=== PATIENT | female | born 1960 | race Caucasian/White ===

== ENCOUNTER → 2020-01-20 | Outpatient (CLI) | payer OTHER ==
--- NOTE | 2020-01-20 12:43 | REP ---
Bilateral lower extremity duplex arterial ultrasound: History: Peripheral vascular disease. Sonographic findings: Ankle brachial indices are normal measured at 1.03 on the right and 1.06 on the left. A 20 mmHg blood pressure difference is noted in the arms, right higher than left. Mild to moderate plaquing is observed bilaterally and diffusely. Triphasic and biphasic waveforms are noted in the lower extremity arteries bilaterally. No high-grade lower extremity stenosis is seen. Right lower extremity arterial Doppler velocity chart: CF A PSV 170 cm/S Profunda 166 Proximal SFA 134 Mid SFA 150 Distal SFA 124 Popliteal 60/80 Proximal AT A 59 Tibioperoneal trunk 67 Proximal WORM RAISER 74 Distal WORM RAISER 86 Distal AT A 45 Dorsalis pedis artery 40 Left lower extremity arterial Doppler velocity chart: CF A PSV 159 cm/S Profunda 95 Proximal SFA 117 Mid SFA 143 Distal SFA 88 Popliteal 81/59 Proximal AT A 59 Tibioperoneal trunk 60 Proximal WORM RAISER 74 Distal WORM RAISER 83 Distal AT A 47 DPA 43 Electronically Signed by Robert Palma MD 01/20/2020 12:34 P
== END ==
LOC: M RAD 10:51
PROVIDERS: ATTEND Internal Medicine
DX: I73.9 Peripheral vascular disease, unspecified (principal)

== ENCOUNTER → 2020-03-30 | Outpatient (CLI) | payer OTHER ==
[~2020-03-30] MED LIST: ASPI81TA26 PO; ATOR80TA59 PO; B-12100T2 PO; FOLI1TAB11 PO; OXYC1TAB23 PO
--- NOTE | 2020-03-30 14:20 | REP ---
REASON FOR EXAM: History of comminuted proximal humeral fracture. There are no prior imaging studies of the right shoulder of any type. There is a comminuted partially impacted proximal humeral fracture which includes the anatomical neck as well as the more distal portion of the imaged proximal humeral diaphysis. There is also an element of impaction. The glenohumeral relationship is maintained. The acromioclavicular joint is maintained. There are no additional fractures. The imaged lung wynn show irregular pleural thickening in the right lung apical region. IMPRESSION: 1. Proximal humeral fracture as described above. 2. Suspect findings involving the right lung apex. Contrast enhanced CT examination of chest is recommended. Electronically Signed by Jose Luis Gabriel DO 03/30/2020 04:12 P
== END ==
LOC: M RAD 12:44
PROVIDERS: ATTEND Orthopaedic Surgery Sports Medicine
DX: S42.251A Displaced fracture of greater tuberosity of right humerus, initial encounter for closed fracture (principal); X58.XXXA Exposure to other specified factors, initial encounter; Y92.9 Unspecified place or not applicable

== ENCOUNTER → 2020-04-03 | Outpatient (CLI) | payer OTHER | LOC: M LABSMTC 14:10 | PROVIDERS: ATTEND Orthopaedic Surgery Sports Medicine | DX: Z03.818 Encounter for observation for suspected exposure to other biological agents ruled out (principal); Z11.59 Encounter for screening for other viral diseases ==

== ENCOUNTER → 2020-04-03 | Outpatient (CLI) | payer OTHER ==
[2020-04-03 14:46] LABS: HEMATOCRIT 33.2 % (36.0-47.0); HEMOGLOBIN 11.1 g/dl (12.0-15.5); MEAN CORPUSCULAR HEMOGLOBIN 32.1 pg (27.0-33.0); MEAN CORPUSCULAR HGB CONC 33.4 g/dl (32.0-36.5); PLATELET COUNT, AUTOMATED 295 10^3/uL (150-450); RED BLOOD COUNT 3.46 10^6/uL (4.00-5.40); WHITE BLOOD COUNT 9.2 10^3/uL (4.0-10.0)
[2020-04-03 14:56] LABS: INR 0.97; PROTHROMBIN TIME 12.6 SECONDS (11.8-14.0)
[2020-04-03 14:57] LABS: PARTIAL THROMBOPLASTIN TIME 29.3 SECONDS (25.0-38.4)
== END ==
LOC: M LAB 13:41
PROVIDERS: ATTEND Orthopaedic Surgery Sports Medicine
DX: Z01.818 Encounter for other preprocedural examination (principal); S42.209A Unspecified fracture of upper end of unspecified humerus, initial encounter for closed fracture; X58.XXXA Exposure to other specified factors, initial encounter; Y92.9 Unspecified place or not applicable

== ENCOUNTER 2020-04-06 10:28 | Day surgery (SDC) | payer OTHER ==
[~2020-04-06] VITALS: Ht 162.6 cm; Wt 63.7 kg
[~2020-04-06 10:28] MED LIST changes: -ASPI81TA26 PO; -ATOR80TA59 PO; -B-12100T2 PO; -FOLI1TAB11 PO; -OXYC1TAB23 PO; +ceFAZolin SOD 2 GM in IV 1 EA IV ONE
[2020-04-06] MEDS ORDERED: ROPIvacaine 0.5% 30ML INJECTION (J2795 PER 1MG) ONE (10:29)
[2020-04-06] MEDS ORDERED: EPINEPHrine INJ 1 MG/ML 1ML AMP ONE (10:29)
[2020-04-06] MEDS ORDERED: LIDOCAINE 1% MDV 20ML VIAL ONE (10:29)
[2020-04-06] MEDS ORDERED: dexameTHASONE 10MG/1ML VIAL PRES.FREE (J1100 PER 1MG) ONE (10:29)
[2020-04-06] MEDS ORDERED: ASPI81TA26 PO (10:45)
[2020-04-06] MEDS ORDERED: OXYC1TAB23 PO (10:45)
[2020-04-06] MEDS ORDERED: FOLI1TAB11 PO (10:45)
[2020-04-06] MEDS ORDERED: B-12100T2 PO (10:45)
[2020-04-06] MEDS ORDERED: ATOR80TA59 PO (10:45)
[2020-04-06] MEDS ORDERED: fentaNYL 100 MCG/2 ML INJECTION (J3010) As Ordered ONE ×2 (11:25→13:23)
[2020-04-06] MEDS ORDERED: MIDAZOLAM INJ 2MG/2ML VIAL (J2250 PER 1MG) As Ordered ONE ×2 (11:25→13:23)
[2020-04-06 11:26] LABS: HEMATOCRIT 35.8 % (36.0-47.0); HEMOGLOBIN 11.4 g/dl (12.0-15.5); MEAN CORPUSCULAR HGB CONC 31.8 g/dl (32.0-36.5); MEAN CORPUSCULAR VOLUME 97.3 fl (80.0-96.0); PLATELET COUNT, AUTOMATED 364 10^3/uL (150-450); RED BLOOD COUNT 3.68 10^6/uL (4.00-5.40); WHITE BLOOD COUNT 8.2 10^3/uL (4.0-10.0)
[2020-04-06] MEDS ORDERED: ONDANSETRON 4MG/2ML VIAL As Ordered ONE (11:27)
[2020-04-06] MEDS ORDERED: dexameTHASONE 4 MG/ML 1ML VIAL (J1100 PER 1MG) As Ordered ONE (11:27)
[2020-04-06] MEDS ORDERED: propofoL 200 MG/20 ML VIAL As Ordered ONE (11:27)
[2020-04-06] MEDS ORDERED: ROCURONIUM BROMIDE 50 MG/5 ML VIAL As Ordered ONE (11:27)
[2020-04-06] MEDS ORDERED: LIDOCAINE 2% 100MG/5ML SDV (FOR ANES.) As Ordered ONE (11:27)
[2020-04-06 11:36] LABS: INR 0.99; PROTHROMBIN TIME 12.8 SECONDS (11.8-14.0)
[2020-04-06 11:37] LABS: PARTIAL THROMBOPLASTIN TIME 30.9 SECONDS (25.0-38.4)
[2020-04-06 12:13] LABS: ERYTHROCYTE SEDIMENTATION RATE 63 mm/hr (0-30)
[2020-04-06] MEDS ORDERED: fentaNYL 100 MCG/2 ML INJECTION (J3010) IV ONE (14:00)
[2020-04-06] MEDS ORDERED: MIDAZOLAM INJ 2MG/2ML VIAL (J2250 PER 1MG) IV ONE (14:00)
[2020-04-06] MEDS ORDERED: TRANEXAMIC ACID 100 MG/ML 10ML VIAL As Ordered ONE ×2 (14:07→14:57)
[2020-04-06] MEDS ORDERED: SUGAMMADEX SODIUM 500 MG/5 ML VIAL (BRIDION) As Ordered ONE (14:27)
[2020-04-06] MEDS ORDERED: PHENYLEPHRINE 10MG/ML 1ML VIAL (J2370 PER 1) As Ordered ONE ×2 (14:33→17:48)
[2020-04-06] MEDS ORDERED: PHENYLephrine 500MCG 5ML (100MCG/ML) SYRINGE As Ordered ONE ×2 (14:39→16:37)
[2020-04-06] MEDS ORDERED: ACETAMINOPHEN 1000MG 100ML IV BTL (OFIRMEV) (J0131 PER 10MG) As Ordered ONE (14:40)
[2020-04-06] MEDS ORDERED: DESFLURANE 240 ML INHALANT As Ordered ONE (17:37)
[2020-04-06] MEDS ORDERED: BUPIVACAINE LIPOSOME/PF 1.3% 20ML VIAL (13.3MG/ML)(EXPAREL)(C9290 PER1MG) As Ordered ONE (17:58)
[2020-04-06] MEDS ORDERED: MORPHINE 2 MG/ML 1ML VIAL (J2270) IV PRN (18:45)
[2020-04-06] MEDS ORDERED: ACETAMINOPHEN TAB 650MG DOSE (2X325MG) PO PRN (18:45)
[2020-04-06] MEDS ORDERED: PERCOCET 5MG/325MG TAB PO PRN (18:45)
[2020-04-06] MEDS ORDERED: ONDANSETRON 4MG/2ML VIAL IV PRN ×2 (18:45)
[2020-04-06] MEDS ORDERED: oxyCODONE 5MG TAB PO PRN (18:45)
[2020-04-06] MEDS ORDERED: LR 1,000 ML IV SCH ×2 (18:45)
[2020-04-06] MEDS ORDERED: fentaNYL 100 MCG/2 ML INJECTION (J3010) IV PRN (18:45)
[2020-04-06 19:45] VITALS: BP 125/64
--- NOTE | 2020-04-06 20:42 | RO ---
DATE OF PROCEDURE: 04/06/2020 PREOPERATIVE DIAGNOSIS: Right proximal humerus fracture. POSTOPERATIVE DIAGNOSIS: Right proximal humerus fracture. PLANNED PROCEDURE: Right proximal humerus open reduction internal fixation (ORIF), possible fibular strut grafting. PROCEDURE PERFORMED: Right proximal humerus open reduction internal fixation, biceps tenodesis, fibular strut grafting, and DBX allograft. OPERATIVE PREAMBLE: This 60-year-old female sustained a proximal humerus fracture. This appeared nearly 100% displaced. There is severe comminution of the medial calcar segment. Given these factors, as well as her age and previous functional status, we talked about the pros and the cons, the risks and benefits of going ahead with surgical management. I reiterated the risks in preoperative holding, marked the right upper extremity and proceeded to surgery. DESCRIPTION OF PROCEDURE: Patient was brought to the operating theater. She was placed supine on the operating room table. Bed was turned 180 degrees so that the patient's head was in the foot end of the table. All bony prominences were padded. Sequential compression devices (SCDs) were used. Jane Hugger was employed. Head was appropriately padded. Two grams of IV Ancef was administered. General anesthesia was induced. The patient also received a preoperative block prior to the surgery. Limb was prepped and draped in the usual sterile fashion. Limb was free draped. Over 3 minutes prep solution drying time was employed. The patient was sat up at approximately a 30-degree angle. Intraoperative fluoroscopy was brought in parallel to the bed at the head end. Radiolucent arm board was used. Preoperative time-out was performed confirming the site, the patient and the surgery. I began by making a standard deltopectoral incision and approached the shoulder. I carried dissection down through skin and subcutaneous tissue. My incision was just lateral to the coracoid. I developed the interval at the cephalic vein. This was retracted and protected laterally. I then identified the conjoined tendon. I incised on the lateral side of that. I used the Bailey shoulder retractor. The fracture did appear to be lower than the subscapularis tendon at the medial calcar segment. There was severe comminution in that area. Multiple fragments. One fragment had to be removed; it was completely devitalized. I placed multiple pins in the humeral head to try to get this out of varus and achieve a proper neck shaft angle. The biceps was stuck in the fracture site. As such, I followed this up through the rotator interval and performed a biceps tenotomy proximally and tenodesis distally in the groove. I then fashioned a fibular strut graft to fit into the intramedullary canal and then proximally into the humeral head and medial calcar segment. Unfortunately, there was a small break in sterile technique. At this point, the sagittal saw used to cut the fibula penetrated the towel going on to the [place] stand. As such, we followed standard protocol, discarding all contaminated instruments, changed my gloves, and I soaked the fibula strut graft in Betadine for 3 minutes with a bulb syringe, thorough lavage and irrigation. I then proceed with the case. I placed the [employer]ynthes precontoured locking plate on the anterolateral aspect of the humerus. I inserted one fully-threaded cortical 3.5 mm locking screw. Unfortunately, the plate slightly lost reduction at this point, and the screws appeared to be aiming too far posteriorly, so the plate was repositioned more on the lateral cortex of the proximal humerus. This appeared much better in terms of proper plate position. I ensured the plate was not impinging proximally by direct visualization using a small K-wire through the locking part of the guide proximally as well as intraoperative fluoroscopy. Once I was satisfied with plate position, I passed a number of 1.2 mm K-wires into the proximal head segment. I then used cortical screws in the distal two holes to achieve plate fixation down to bone. I used a cortical screw in the oblong hole for the medial calcar segment through the fibular strut graft and into the inferomedial aspect of the head and neck region. I then inserted all the fully-threaded cortical locking screws proximally using a 2.8 mm drill. I checked the screw length on both the AP and lateral radiographs to ensure that they were just short of subchondral bone. The medial calcar segment had two areas of comminution. I used these to achieve proper length. However, I left the soft tissues in place as to not devitalize these fragments. Final radiographs were taken. These were saved on PACS system. Thorough irrigation was performed of the wounds. Rotator cuff at both subscapularis as well as supraspinatus appeared intact throughout the case. Subcutaneous tissues were closed with interrupted #2-0 Vicryl and the skin with running #3-0 Monocryl. 10 mL of saline was then drawn up with the Exparel solution, making 20 mL of solution. This was instilled in and around the incision sites. Skin was cleaned with a wet and dry dressing followed by application of Steri-Strips, Adaptic, 4 x 8 gauze, ABD dressing and cloth tape. The patient's upper extremity was placed into a sling. The patient was woken up from general anesthetic, transferred off of the operating table, taken to postanesthetic care unit in stable condition. All sponge, needle, and instrument counts were correct. No complications. Estimated blood loss: 200 mL. PLAN: The patient is to be discharged home according to day surgery criteria. She may need to stay one day overnight in the hospital depending on her pain control. I have communicated to Iker Segundo how the case went and proper followup instructions, including remaining in a sling aside from hand, wrist and elbow exercises, as well as changing the dressing postop day #2, and followup in the office in 2 weeks' time. ADDENDUM: I also used DBX bone graft, approximately 4 mL of that, directly at the fracture site as there was an area of bone loss in that area. ,
--- NOTE | 2020-04-07 04:35 | REP ---
C-ARM VIEWS RIGHT SHOULDER: Two C-arm views right shoulder performed. Metallic plate and multiple metallic screws are placed in the proximal right humerus. Osseous structures appear well aligned. 4 minutes 3 seconds fluoroscopy time utilized. Electronically Signed by Caleb Jordan MD 04/08/2020 03:56 P
[2020-04-07] MEDS ORDERED: PHENYLephrine 500MCG 5ML (100MCG/ML) SYRINGE As Ordered ONE (10:59)
== END 2020-04-06 19:50 | disposition home or self-care (01) ==
LOC: M SDC 10:28 → EDSTATUS 14:07 → M SDC 19:50
PROVIDERS: ATTEND Orthopaedic Surgery Sports Medicine
DX: S42.201A Unspecified fracture of upper end of right humerus, initial encounter for closed fracture (principal); X58.XXXA Exposure to other specified factors, initial encounter; Y92.89 Other specified places as the place of occurrence of the external cause; Y93.9 Activity, unspecified; Y99.9 Unspecified external cause status; E78.5 Hyperlipidemia, unspecified; Z79.899 Other long term (current) drug therapy; Z79.82 Long term (current) use of aspirin
CPT/HCPCS: 20900; 23430; 23615; 36415; 64415; 76000; 85027; 85610; 85652; 85730; C1713; C1762; C9290; J0131; J0171; J0690; J1100; J2250; J2370; J2405; J2795; J3010

== ENCOUNTER 2020-05-21 10:45 | Day surgery (SDC) | payer OTHER ==
[~2020-05-21 10:45] MED LIST changes: +ASPI81TA26 PO; +ATOR80TA59 PO; +B-12100T2 PO; +FOLI1TAB11 PO; +OXYC1TAB23 PO; -ceFAZolin SOD 2 GM in IV 1 EA IV ONE
[2020-05-21] MEDS ORDERED: PHENYLephrine HCL 500 MCG/5 ML (100MCG/ML) SYRINGE (J2370) As Ordered ONE (11:40)
== END 2020-05-21 12:00 | disposition home or self-care (01) ==
LOC: M OPP 10:45
PROVIDERS: ATTEND Internal Medicine Gastroenterology
DX: K57.30 Diverticulosis of large intestine without perforation or abscess without bleeding (principal); K64.8 Other hemorrhoids; D12.3 Benign neoplasm of transverse colon; I25.2 Old myocardial infarction; Z79.82 Long term (current) use of aspirin; Z79.891 Long term (current) use of opiate analgesic; Z79.899 Other long term (current) drug therapy; Z86.73 Personal history of transient ischemic attack (TIA), and cerebral infarction without residual deficits; Z87.891 Personal history of nicotine dependence
CPT/HCPCS: 45385; 88305; J2370

== ENCOUNTER → 2020-05-25 | Outpatient (CLI) | payer OTHER ==
[2020-06-24 14:58] LABS: BASO # 0.1 10^3/uL (0.0-0.2); EOS # 0.1 10^3/uL (0.0-0.5); EOS % 1.3 % (0.0-3.0); HEMATOCRIT 42.4 % (36.0-47.0); HEMOGLOBIN 13.9 g/dl (12.0-15.5); LYMPH # 1.8 10^3/uL (1.5-5.0); LYMPH % 28.8 % (24.0-44.0); MEAN CORPUSCULAR HEMOGLOBIN 31.2 pg (27.0-33.0); MEAN CORPUSCULAR HGB CONC 32.8 g/dl (32.0-36.5); MEAN CORPUSCULAR VOLUME 95.3 fl (80.0-96.0); MONO # 0.4 10^3/uL (0.0-0.8); NEUTROPHILS # 3.9 10^3/uL (1.5-8.5); NEUTROPHILS % 62.7 % (36.0-66.0); PLATELET COUNT, AUTOMATED 313 10^3/uL (150-450); RED BLOOD COUNT 4.45 10^6/uL (4.00-5.40); WHITE BLOOD COUNT 6.2 10^3/uL (4.0-10.0)
[2020-06-24 15:03] LABS: ERYTHROCYTE SEDIMENTATION RATE 5 mm/hr (0-30)
== END ==
LOC: M LAB 10:50
PROVIDERS: ATTEND Orthopaedic Surgery Sports Medicine
DX: S42.201D Unspecified fracture of upper end of right humerus, subsequent encounter for fracture with routine healing (principal)

== ENCOUNTER → 2020-06-24 | Outpatient (CLI) | payer OTHER ==
--- NOTE | 2020-07-15 11:29 | REP ---
CAROTID DOPPLER ULTRASOUND: 06/24/20 CLINICAL: History of atherosclerotic disease including carotid stenosis and prior right endarterectomy. TECHNIQUE: Real time sheriff scale and color doppler evaluation using linear high frequency transducer. FINDINGS: Right common carotid artery demonstrates smooth intimal thickening without appreciable atherosclerotic plaquing or narrowing. Arterial wave patterns demonstrate normal triphasic and biphasic wave patterns with mild/moderate spectral broadening. There is normal flow direction through the right vertebral artery. The left carotid artery demonstrates partially calcified atheromatous plaquing through the common carotid artery extending into the carotid bulb and proximal internal and external arteries causing posterior shadowing somewhat limiting evaluation. Areas of stenosis are suggested through the distal common carotid artery as well as the carotid bulb and proximal internal carotid artery. Biphasic arterial wave patterns noted with spectral broadening. There is reversed flow in the left vertebral artery. RIGHT LEFT ICA PSV 115 134 cm/s ICA EDV 29.4 34.8 cm/s ECA PSV 220 130 cm/s CCA PSV 136 168 cm/s ICA/CCA Ratio 0.8 0.7 IMPRESSION: 1. Right carotid artery demonstrates normal lumen with narrowing in the less than 50% range. 2. Left carotid artery demonstrates mixed atheromatous plaquing with posterior shadowing and findings to suggest narrowing in the 50-69% range. 3. Reverse flow suggested in the left vertebral artery. MTDD
== END ==
LOC: M RAD 10:22
PROVIDERS: ATTEND Neurological Surgery
DX: I63.239 Cerebral infarction due to unspecified occlusion or stenosis of unspecified carotid artery (principal)